=== PATIENT | male | born 1985 | race Caucasian/White ===

== ENCOUNTER 2021-04-08 15:58 | Emergency (ER) | payer OTHER ==
[~2021-04-08 15:58] MED LIST: NORFLEX 100 MG100 MG PO; TORADOL 10 MG T10 MG PO
[2021-04-08] MEDS ORDERED: IBUPROFEN600 MG PO (18:22)
== END 2021-04-08 18:36 | disposition home or self-care (01) ==
LOC: ER1 15:58
DX: S99.911A Unspecified injury of right ankle, initial encounter (principal); F17.290 Nicotine dependence, other tobacco product, uncomplicated; W01.0XXA Fall on same level from slipping, tripping and stumbling without subsequent striking against object, initial encounter
CPT/HCPCS: 73590; 73610; 73630; 99283

== ENCOUNTER → 2021-05-06 | Outpatient (CLI) | payer OTHER ==
[~2021-05-06] MED LIST changes: +IBUPROFEN600 MG PO
== END ==
LOC: KOH-I 09:13
DX: S82.401D Unspecified fracture of shaft of right fibula, subsequent encounter for closed fracture with routine healing (principal); M79.89 Other specified soft tissue disorders
CPT/HCPCS: 73610